=== PATIENT | female | born 1995 | race Caucasian/White ===

== ENCOUNTER 2019-10-04 14:51 | Inpatient (IN) ==
[2019-10-04] MEDS ORDERED: LACTATED RINGERS 500 ML IV PRN (15:49)
[2019-10-04] MEDS ORDERED: ONDANSETRON 4 MG/2 ML VIAL IV PRN (15:49)
[2019-10-04] MEDS ORDERED: TERBUTALINE 1 MG/1 ML VIAL SUBCUT PRN (15:54)
[2019-10-04] MEDS ORDERED: BUTORPHANOL 2 MG/ML VIAL IV PRN (15:54)
[2019-10-04] MEDS ORDERED: miSOPROStoL 200 MCG TABLET VAG PRN (15:54)
[2019-10-04] MEDS ORDERED: LIDOCAINE 1% 50 ML VIAL MISC INJ ONE (15:54)
[2019-10-04] MEDS ORDERED: CARBOPROST TROMETHAMINE 250 MCG/ML AMP IM PRN (15:54)
[2019-10-04] MEDS ORDERED: LACTATED RINGERS 1,000 ML IV SCH (16:00)
[2019-10-04] MEDS ORDERED: LACTATED RINGERS 1,000 ML IV PRN (16:17)
[2019-10-04 16:22] LABS: Basophils % 0.2 % (0.0-0.8); Eosinophils % 0.4 % (0.00-10.9); Hematocrit 35.2 VOL% (35.7-47.0); Hemoglobin 10.7 GM/DL (12.0-16.0); Immature Granulocytes % 0.4 %; Immature Granulocytes Absolute 0.03 #; Lymphocytes # 1.2 10*3/uL (1.4-4.0); Lymphocytes % 14.8 % (21.3-54.2); Mean Corpuscular HGB Conc 30.4 GM/DL (32-36); Mean Corpuscular Volume 84.6 FL (87-102); Mean Platelet Volume 11.4 FL (9.6-12.0); Monocytes % 6.3 % (1.7-12.7); Neutrophils % 77.9 % (38.7-73.9); Platelet Count 175 T/CUMM (130-400); Red Blood Count 4.16 MC/CUMM (3.8-5.5); Red Cell Distribution Width 14.7 % (9.3-17.3); White Blood Count 8.1 T/CUMM (4-12)
[2019-10-04 16:46] LABS: Albumin 2.3 G/DL (3.4-5.0); Bilirubin,Total 1.2 MG/DL (0.2-1.0); Calcium 8.6 MG/DL (8.5-10.1); Total Protein 6.8 G/DL (6.4-8.3); Uric Acid 5.8 MG/DL (2.6-6.0)
[2019-10-04] MEDS ORDERED: DINOPROSTONE VAG GEL 10 MG SYRINGE VAG ONE ×2 (17:13→17:42)
[2019-10-05] MEDS ORDERED: OXYTOCIN/LR 20 UNIT/1,000 ML BAG IV SCH (03:00)
[2019-10-05] MEDS ORDERED: FAMOTIDINE 20 MG/2 ML VIAL IV ONE (03:47)
[2019-10-05] MEDS ORDERED: diphenhydrAMINE 50 MG/1 ML VIAL IV PRN (03:47)
[2019-10-05] MEDS ORDERED: CITRIC ACID/SODIUM CITRATE 30 ML UDCUP PO ONE (03:47)
[2019-10-05] MEDS ORDERED: NALOXONE 0.4 MG/ML VIAL IV PRN (03:47)
[2019-10-05] MEDS ORDERED: LACTATED RINGERS 1,000 ML IV ONE (03:47)
[2019-10-05] MEDS ORDERED: ePHEDrine 50 MG/ML AMP IV PRN (03:47)
[2019-10-05] MEDS ORDERED: fentaNYL 2 MCG/ROPIV 0.2% EPID 100 ML EPIDURAL SCH (04:00)
[2019-10-05] MEDS ORDERED: LACTATED RINGERS 1,000 ML IV SCH ×3 (04:00→18:00)
[2019-10-05] MEDS ORDERED: MEPERIDINE 50 MG/1 ML VIAL IV PRN (05:40)
[2019-10-05] MEDS ORDERED: METHYLERGONOVINE 0.2 MG/1 ML AMP ONE (09:05)
[2019-10-05] MEDS ORDERED: LIDOCAINE 1% 50 ML VIAL ONE (09:05)
[2019-10-05 10:29] LABS: Apearance,Urine Slightly Hazy (Clear); Bilirubin,Urine Negative (Negative); Blood, Urine Negative (Negative); Glucose,Urine (UA) Negative (Negative); Hyaline Casts,Urine 4 /LPF (0-3); Ketones,Urine Negative (Negative); Mucus,Urine Moderate /LPF (Occasional); Nitrite,Urine Negative (Negative); Protein,Urine 100 MG/DL; RBC,Urine 6 /HPF (0-4); Squamous Epithelial Cell,Urine Occasional /HPF (0-10); Urine Color Yellow (Yellow); Urine Specific Gravity 1.028 (1.001-1.035); Urine Urobilinogen < 2.0 EU/DL (0.2-1.0); WBC,Urine 2 /HPF (0-6)
[2019-10-05] MEDS ORDERED: ceFAZolin 3,000 MG in SYRINGE 1 EACH IV ONE (16:35)
[2019-10-05] MEDS ORDERED: KETOROLAC 60 MG/2 ML VIAL IM ONE (16:36)
[2019-10-05] MEDS ORDERED: OXYTOCIN/LR 30 UNIT/1,000 ML BAG IV ONE (16:36)
[2019-10-05] MEDS ORDERED: LIDOCAINE MPF 2% /EPI 20 ML VIAL ONE (16:36)
[2019-10-05] MEDS ORDERED: OXYTOCIN 10 UNIT/ML VIAL IM ONE (16:36)
[2019-10-05] MEDS ORDERED: MORPHINE 10 MG/10 ML VIAL ONE (16:36)
[2019-10-05 17:11] LABS: Cord Arterial Blood HCO3 19.2 MMOL/L
[2019-10-05 17:14] LABS: Cord Venous Blood HCO3 19.4 MMOL/L; Cord Venous Blood PCO2 47.3 MMHG
[2019-10-05 17:15] LABS: Cord Venous Blood PO2 19.6
[2019-10-05] MEDS ORDERED: hydrOXYzine HCL 25 MG/1 ML VIAL IM PRN (17:37)
[2019-10-05] MEDS ORDERED: HYDROmorphone 2 MG/1 ML VIAL IV PRN (17:37)
[2019-10-05] MEDS ORDERED: PHENYLEPHRINE 1 MG/10 ML SYRINGE IV ONE (17:40)
[2019-10-05] MEDS ORDERED: ACETAMINOPHEN 325 MG TABLET PO PRN (18:00)
[2019-10-05] MEDS ORDERED: OXYTOCIN/LR 20 UNIT/1,000 ML BAG IV ONE (18:00)
[2019-10-05] MEDS ORDERED: ONDANSETRON 4 MG/2 ML VIAL IV PRN (18:00)
[2019-10-05] MEDS ORDERED: RHO(D) IMMUNE GLOBULIN 300 MCG SYRINGE IM ONE (18:00)
[2019-10-05] MEDS ORDERED: MAGNESIUM HYDROXIDE SUSP 30 ML UDCUP PO PRN (18:00)
[2019-10-05] MEDS ORDERED: SIMETHICONE CHEW 80 MG TABLET PO PRN (18:00)
[2019-10-05] MEDS ORDERED: KETOROLAC 30 MG/1 ML VIAL IV SCH (23:30)
[2019-10-05] MEDS: ceFAZolin 1,000 MG in SYRINGE 1 EACH IV SCH (23:54)
[2019-10-06 06:51] LABS: Basophils % 0.3 % (0.0-0.8); Eosinophils % 0.3 % (0.00-10.9); Hematocrit 28.1 VOL% (35.7-47.0); Hemoglobin 8.8 GM/DL (12.0-16.0); Immature Granulocytes % 0.4 %; Immature Granulocytes Absolute 0.04 #; Lymphocytes # 1.6 10*3/uL (1.4-4.0); Lymphocytes % 16.1 % (21.3-54.2); Mean Corpuscular HGB Conc 31.3 GM/DL (32-36); Mean Corpuscular Volume 83.1 FL (87-102); Mean Platelet Volume 12.6 FL (9.6-12.0); Monocytes % 6.5 % (1.7-12.7); Neutrophils % 76.4 % (38.7-73.9); Platelet Count 126 T/CUMM (130-400); Red Blood Count 3.38 MC/CUMM (3.8-5.5); Red Cell Distribution Width 15.1 % (9.3-17.3); White Blood Count 10.1 T/CUMM (4-12)
[2019-10-06] MEDS: ceFAZolin 1,000 MG in SYRINGE 1 EACH IV SCH (08:38)
[2019-10-06] MEDS: MULTIVITAMIN (PRENATAL) TABLET PO SCH (08:39)
[2019-10-06] MEDS: METOCLOPRAMIDE 10 MG TABLET PO SCH ×2 (08:39→15:15)
[2019-10-06] MEDS: DOCUSATE SODIUM 100 MG CAPSULE PO SCH ×3 (08:39→20:32)
[2019-10-06] MEDS: IBUPROFEN 800 MG TABLET PO PRN ×2 (12:30→20:30)
[2019-10-07] MEDS: DOCUSATE SODIUM 100 MG CAPSULE PO SCH (09:38)
[2019-10-07] MEDS: MULTIVITAMIN (PRENATAL) TABLET PO SCH (09:38)
[2019-10-07] MEDS: METOCLOPRAMIDE 10 MG TABLET PO SCH ×2 (09:38→11:44)
[2019-10-07 17:06] VITALS: BP 144/83
[2019-10-07] MEDS ORDERED: DIPH/TET/ACEL PERT BOOSTER VACCINE 0.5 ML VIAL IM ONE (18:38)
[2019-10-07] MEDS ORDERED: FERROUS SULFATE 325 MG TABLET PO SCH (21:00)
== END 2019-10-07 20:10 | disposition home or self-care (01) | DRG 540 ==
LOC: N.LD 14:51 → N.OB 10-05 20:48
PROVIDERS: ADMIT Obstetrics & Gynecology; ATTEND Obstetrics & Gynecology
PROC: LDCSECT (ICD-10-PCS; 2019-10-05 16:30)